=== PATIENT | female | born 1980 | race Asian ===

== ENCOUNTER → 2023-10-08 12:24 | Outpatient (REF) | payer OTHER, SELFPAY | LOC: RAD 12:24 | PROVIDERS: ATTENDING PHYSICIAN Nurse Practitioner Family | DX: M79.89 Other specified soft tissue disorders (principal) | CPT/HCPCS: 93971 ==

== ENCOUNTER → 2023-10-24 13:14 | Outpatient (REF) | payer OTHER, SELFPAY | LOC: RAD 13:14 | PROVIDERS: ATTENDING PHYSICIAN Nurse Practitioner Family | DX: M79.672 Pain in left foot (principal); M25.472 Effusion, left ankle | CPT/HCPCS: 73610; 73630 ==

== ENCOUNTER 2024-05-18 09:56 | Emergency (ER) | payer OTHER, SELFPAY ==
[2024-05-18 10:13] VITALS: BP 124/86
--- NOTE | 2024-05-18 10:17 | ED.GENMED ---
ED Provider Triage
<Holley Howard INTERNAL GRINDER SET UP OPERATOR - Last Filed: 05/18/24 10:22>
-
Patient seen by provider in Triage?: Seen in Triage
Attestation: A medical screening examination has been initiated by a qualified medical provider. Based on the assessment performed at this time, it has been determined that an emergent medical condition may exist and the patient has been informed
that further medical evaluation and possible additional diagnostic testing may be needed.
HPI: 43-year-old female with no past medical history states she has had palpitations since last night and her Apple watch read that it was A-fib. She has had palpitations the past but these are longer than usual. She has some nonradiating mid
chest 'discomfort,' worse with bending forward. Also has left lower jaw pain which started within the past several minutes, feels like tooth pain. Did feel lightheaded while in waiting room. Also has mild headache which just started within the
past several minutes
She states she does tend to get palpitations around her period, she did have some spotting 3 days ago. She is starting to have irregular periods.
GENERAL: Alert , in no apparent distress
EYE: No visual abnormalities.
ENT: No visible abnormalities.
LUNGS: No acute respiratory distress
NEUROLOGICAL: Alert and oriented
SKIN: Skin intact. No visible changes.
MUSCULOSKELETAL: Moving extremities normally
PSYCH: Normal and appropriate interaction.
This is a medical evaluation conducted in person to initiate diagnostic evaluation and provide initial therapeutics. Please see further documentation by the treating clinician.
History of Present Illness
<Holley Howard, INTERNAL GRINDER SET UP OPERATOR - Last Filed: 05/18/24 10:22>
General
Chief Complaint: Heart Rate Problem
Time Seen by Provider: 05/18/24 11:07
<Otilio Yusuf DO - Last Filed: 05/18/24 12:33>
History of Present Illness
History of Present Illness:
TIME OF INITIAL ENCOUNTER: 11 AM
HPI: The patient presents with recurrent palpitations. She has had several episodes like this in the past. She was seen by a cellophaner in [place] who told her to bear down if she ever had these episodes. This is the first time she had ongoing
symptoms. Upon arrival, she is found to have SVT with rates in the low 200s. She states that she did have some Sudafed last night but did not develop palpitations till this morning.
EXAM:
GENERAL: Well appearing in no distress
HEENT: Moist oral mucosa
CARDIOVASCULAR: No murmurs, tachycardic heart rate, regular rhythm, No chest wall tenderness
PULMONARY: No respiratory distress, breath sounds are clear and equal
ABDOMEN: Soft with no peritoneal signs, no tenderness
NEUROLOGIC: Excellent strength all extremities, no coordination deficits
PSYCHIATRIC: Appropriate mental status, normal insight and judgement, but appears slightly anxious
EXTREMITIES: Nontender, no edema, moves all extremities equally
SKIN: No rash, no lesions
NUMBER AND COMPLEXITY OF PROBLEMS ADDRESSED AT THE ENCOUNTER
� Chronic conditions affecting care: No significant past medical history but has had paroxysmal palpitations in the past
� Acute Exacerbation and/or Progression of Chronic Illness: This is an acute problem
� Differential Diagnosis includes: SVT, medication induced, atrial dysrhythmia, electrolyte abnormality, thyroid disease
AMOUNT AND/OR COMPLEXITY OF DATA TO BE REVIEWED AND ANALYZED
� I performed an independent evaluation of and my interpretation is:
EKG: Initial EKG shows a sinus rhythm with rate of 109, at 11:05 AM, EKG shows SVT with ventricular rate of 210
CT:
X-rays:
Laboratory Studies: Chemistries unremarkable, hCG, troponin, TSH normal, CBC normal
Other:
� Review of other/old records: No old records available for review
� Clinical information was obtained by an independent historian: Spoke to at bedside
� Prescriptions/Medications Considered but not given:
� Further testing considered but not performed:
RISK OF COMPLICATIONS AND/OR MORBIDITY OR MORTALITY OF PATIENT MANAGEMENT
� Social determinants of health affecting care: Lives at home
� Discussion with other providers: Discussed case with Dr. Khadijah Guthrie� she agrees with beta-maday and has arrange close outpatient follow-up for 8 AM this
� Escalation of care including admission/observation vs risk of discharge considered: Upon arrival, patient's heart rate was around 200 however with vagal maneuvers she went back down to about 100 but lasted only temporarily.
She was given IV and oral beta-maday and then was also given adenosine.
ANY OTHER UPDATES:
12:20 PM: Heart rate prior rarely around 100. Overall feels improved. Some vague chest discomfort has been occurring however it is clearly reproducible with palpation on examination. Suggest that she try Motrin (declined Toradol here).
Phy Exam
<Otilio Yusuf, DO - Last Filed: 05/18/24 12:33>
Physical Exam
Physical Exam:
See HPI
Course
<Holley Howard, INTERNAL GRINDER SET UP OPERATOR - Last Filed: 05/18/24 10:22>
Orders/Labs/Results
Orders:
Orders
05/18/24 10:09
EKG [Electrocardiogram (*1)] Urgent
Reason for Study: Chest Pain
EKG- Treatment ONCE
05/18/24 10:21
Test Result ONCE
CR Chest - 2 Views Urgent
Comment:
Reason For Exam: palpitations, cp
05/18/24 10:32
Complete Blood Count/With Diff Urgent
Comprehensive Metabolic Panel Urgent
HCG, Serum Qualitative Screen Urgent
TSH Urgent
Troponin I Urgent
05/18/24 11:03
Electrocardiogram (*1) Urgent
Reason for Study: Tachycardia
EKG- Treatment ONCE
05/18/24 11:06
Adenosine [Adenocard] 18 mg .ROUTE .STK-MED ONE
Diltiazem HCl [Cardizem] 25 mg .ROUTE .STK-MED ONE
05/18/24 11:10
0.9% Sodium Chloride 1000 ml [Nss] 1,000 ml IV BOLUS
Metoprolol [Lopressor] 5 mg .ROUTE .STK-MED ONE
05/18/24 11:11
Metoprolol [Lopressor] 5 mg IV NOW STA
05/18/24 11:15
Adenosine [Adenocard] 6 mg IV NOW STA
05/18/24 11:20
Metoprolol Xl [Toprol Xl] 25 mg PO NOW STA
Abnormal Lab Results
05/18/24
10:32
Hgb 16.1 H g/dL
(12.0-16.0)
MCH 32.4 H pg
(27.0-31.0)
Chloride 108 H mmol/L
(98-107)
Carbon Dioxide 21 L mmol/L
(22-30)
BUN 6 L mg/dl
(7-17)
Creatinine 0.5 L mg/dL
(0.6-1.0)
Glucose 116 H mg/dl
(70-99)
05/18/24 10:32
05/18/24 10:32
Vital Signs
Initial and Last Documented VS:
Initial Vital Signs
Temp Pulse Resp BP Pulse Ox
36.8 C 117 18 124/86 100
05/18/24 10:13 05/18/24 10:13 05/18/24 10:13 05/18/24 10:13 05/18/24 10:13
Last Documented Vital Signs
Temp Pulse Resp BP Pulse Ox
36.8 C 105 32 101/56 100
05/18/24 10:13 05/18/24 11:30 05/18/24 11:30 05/18/24 11:30 05/18/24 11:30
<Otilio Yusuf, DO - Last Filed: 05/18/24 12:33>
Orders/Labs/Results
Orders:
Orders
05/18/24 10:09
EKG [Electrocardiogram (*1)] Urgent
Reason for Study: Chest Pain
EKG- Treatment ONCE
05/18/24 10:21
Test Result ONCE
CR Chest - 2 Views Urgent
Comment:
Reason For Exam: palpitations, cp
05/18/24 10:32
Complete Blood Count/With Diff Urgent
Comprehensive Metabolic Panel Urgent
HCG, Serum Qualitative Screen Urgent
TSH Urgent
Troponin I Urgent
05/18/24 11:03
Electrocardiogram (*1) Urgent
Reason for Study: Tachycardia
EKG- Treatment ONCE
05/18/24 11:06
Adenosine [Adenocard] 18 mg .ROUTE .STK-MED ONE
Diltiazem HCl [Cardizem] 25 mg .ROUTE .STK-MED ONE
05/18/24 11:10
0.9% Sodium Chloride 1000 ml [Nss] 1,000 ml IV BOLUS
Metoprolol [Lopressor] 5 mg .ROUTE .STK-MED ONE
05/18/24 11:11
Metoprolol [Lopressor] 5 mg IV NOW STA
05/18/24 11:15
Adenosine [Adenocard] 6 mg IV NOW STA
05/18/24 11:20
Metoprolol Xl [Toprol Xl] 25 mg PO NOW STA
Abnormal Lab Results
05/18/24
10:32
Hgb 16.1 H g/dL
(12.0-16.0)
MCH 32.4 H pg
(27.0-31.0)
Chloride 108 H mmol/L
(98-107)
Carbon Dioxide 21 L mmol/L
(22-30)
BUN 6 L mg/dl
(7-17)
Creatinine 0.5 L mg/dL
(0.6-1.0)
Glucose 116 H mg/dl
(70-99)
05/18/24 10:32
05/18/24 10:32
Vital Signs
Initial and Last Documented VS:
Initial Vital Signs
Temp Pulse Resp BP Pulse Ox
36.8 C 117 18 124/86 100
05/18/24 10:13 05/18/24 10:13 05/18/24 10:13 05/18/24 10:13 05/18/24 10:13
Last Documented Vital Signs
Temp Pulse Resp BP Pulse Ox
36.8 C 105 32 101/56 100
05/18/24 10:13 05/18/24 11:30 05/18/24 11:30 05/18/24 11:30 05/18/24 11:30
<Otilio Yusuf DO - Last Filed: 05/18/24 12:33>
*Critical Care Note
Total Time (30-74mins, 75-104mins- exclusive of procedures): 40 minutes
comment:
The patient's heart rate was above 200 on several occasions. This recurred despite vagal maneuvers. We also gave beta-maday both IV and orally. We have also given adenosine. Her vital signs were very closely monitored. Overall she has
improved after medications were given. I also emergently discussed case with cardiology.
ED Attending Note
<Holley Howard INTERNAL GRINDER SET UP OPERATOR - Last Filed: 05/18/24 10:22>
-
Portions of this chart may have been created with voice recognition software.� Occasional wrong word or��sound alike� substitutions may have occurred due to the inherent limitations of voice recognition software.
Discharge Plan
Departure
Patient Disposition: Home (Routine Discharge)
Date of Disposition: 05/18/24
Time of Disposition: 12:22
Patient with high blood pressure during this ER visit?: Yes
Discharge Problem:
Supraventricular tachycardia
Instructions: Supraventricular tachycardia (SVT)
Prescriptions:
New
metoprolol succinate [Toprol XL] 25 mg tablet extended release 24 hr
25 mg PO DAILY Qty: 30 0RF
Referrals:
Richard Umanzor MD [Family Provider] -
Rah Guthrie MD [Active] - Follow up in 2-3 days
Activity Restrictions/Additional Instructions:
I notified one of the cardiologists here. She would like you to follow-up with Dr[facility] at 8 AM on . She agrees with placing you on the beta-maday as an outpatient. Return here if worse or other concerns.
Today, we gave you a quick acting IV metoprolol, long-acting oral metoprolol, and a dose of adenosine. You did respond to vagal maneuvers initially.
Interventions
Interventions:
*Risk Screen - Suicide Last Done: 05/18/24 10:13
*General Assessment Last Done: 05/18/24 10:13
*Neglect/Abuse Screening Last Done: 05/18/24 10:13
*ED COVID-19 Vaccine History Last Done: 05/18/24 11:09
ED- Cardiac Assessment Last Done: 05/18/24 11:09
ED- Pulmonary Assessment Last Done: 05/18/24 11:09
Discharge Date and Time
Print Language: TURKMEN
[2024-05-18 10:47] LABS: % Basophils 0.6 % (0-2); % Eosinophils 1.9 % (0-6); % Immature Granulocytes 0.4 % (0-0.5); % Lymphocytes 33.1 % (20.5-51.1); % Monocytes 7.8 % (1.7-9.3); % Neutrophils 56.2 % (42.2-75.2); Absolute Eosinophils 0.1 10^3/uL (0-0.7); Absolute Lymphocytes 1.6 10^3/uL (1.2-3.4); Absolute Monocytes 0.4 10^3/uL (0.1-0.6); Absolute Neutrophils 2.7 10^3/uL (1.4-6.5); Hematocrit 46.7 % (37.0-47.0); Hemoglobin 16.1 g/dL (12.0-16.0); Mean Corp Hgb Conc. 34.5 g/dL (33.0-37.0); Mean Corpuscular Hgb 32.4 pg (27.0-31.0); Mean Platelet Volume 10.2 fL (7.4-10.4); Nucleated Red Blood Cells % 0 %; Platelet Count 259 10^3/uL (130-400); Red Blood Cell Count 4.97 10^6/uL (4.20-5.40); Red Cell Dist. Width 11.6 % (11.5-14.5); White Blood Cell Count 4.9 10^3/uL (4.8-10.8)
[2024-05-18 10:57] LABS: HCG, Serum Qualitative Screen Negative
[2024-05-18 11:02] LABS: ALT (SGPT) 26 U/L (0-35); AST (SGOT) 26 U/L (14-36); Albumin 4.9 g/dl (3.5-5.0); Alkaline Phosphatase 56 U/L (38-126); Blood Urea Nitrogen 6 mg/dl (7-17); Calcium 9.6 mg/dl (8.4-10.2); Carbon Dioxide 21 mmol/L (22-30); Chloride 108 mmol/L (98-107); Glucose 116 mg/dl (70-99); Potassium 4.3 mmol/L (3.5-5.1); Sodium 143 mmol/L (135-145); Total Bilirubin 0.3 mg/dl (0.2-1.3); Total Protein 7.5 g/dl (6.3-8.2); eGFR > 60.00
[2024-05-18 11:06] LABS: Troponin I < 0.012 ng/ml
[2024-05-18 11:07] VITALS: BP 158/139
[2024-05-18] MEDS: NSS 1000 IV (11:12)
[2024-05-18] MEDS: LOPRESSOR 5 MG IV (11:12)
[2024-05-18 11:17] VITALS: BP 109/71
[2024-05-18] MEDS: ADENOCARD 6 MG IV (11:18)
[2024-05-18] MEDS: TOPROL XL 25 MG PO (11:24)
[2024-05-18 11:28] LABS: TSH 0.73 uIU/ml (0.47-4.68)
[2024-05-18 11:30] VITALS: BP 101/56
== END 2024-05-18 12:44 | disposition home or self-care (01) ==
LOC: EMR 09:56
PROVIDERS: Registered Nurse; EMERGENCY PHYSICIAN Emergency Medicine; FAMILY PHYSICIAN Family Medicine
DX: I47.10 Supraventricular tachycardia, unspecified (principal); R03.0 Elevated blood-pressure reading, without diagnosis of hypertension
CPT/HCPCS: 99291; 96374; 96375; 96361; 80053; 84443; 84484; 84703; 85025; 93005; J0153

== ENCOUNTER 2025-03-24 12:01 | Emergency (ER) | payer OTHER, SELFPAY ==
[2025-03-24 12:04] VITALS: BP 157/107
--- NOTE | 2025-03-24 13:10 | ED.GENMED ---
History of Present Illness
General
Chief Complaint: Eye Problems
Time Seen by Provider: 03/24/25 13:09
History of Present Illness
History of Present Illness:
FOCUSED PAST MEDICAL HISTORY
- Has had AVNRT
REVIEW OF OLD RECORDS
- The patient was seen with SVT in May 2024 by me and converted with adenosine
Note:
CHIEF COMPLAINT(S)
Left eye trauma.
HISTORY OF PRESENT ILLNESS
The patient is a 44-year-old female who presented with trauma to the left eye after an injury involving a pointed metal object. The incident occurred when the patient was dropping something, and the metal object, initially placed outside, had been
moved inside. The object caused an abrasion characterized by soreness and stinging, though the patient did not report any sensation of a foreign body within the eye. The trauma appears to have resulted in a cut, and upon wiping with tissue after
rinsing with warm water, the patient noticed blood. A physical examination revealed focal conjunctival hemorrhage in the lateral aspect of the sclera of the left eye.
PHYSICAL EXAM
General: Alert, no acute distress.
Eye, Ears, Nose, Mouth, and Throat: The left eye shows significant focal subconjunctival injection at the lateral aspect of the left eye. No evidence of corneal involvement is observed, as confirmed by the lack of a hyphaema (i.e., no fluid or blood
collection in the anterior chamber) there is no fluorescein uptake over the cornea there is an increased amount of tearing to the left eye
PROBLEM LIST
Acute:
- Left eye subconjunctival hemorrhage
PLAN
- Perform staining of the eye to assess for any corneal abrasions.
- Monitor for any signs of worsening or additional symptoms.
DIFFERENTIAL DIAGNOSIS
The Differential Diagnosis includes, in no particular order and is not limited to:
- Conjunctival laceration
- Corneal abrasion
- Subconjunctival hemorrhage
- Foreign body in the eye
- Corneal ulcer
- Blunt trauma injury to the eye
- Hyphema
- Scleral laceration
- Orbital fracture
- Endophthalmitis (if infection develops)
Disposition:
SUMMARY OF ENCOUNTER
The patient, a 44-year-old female, presented to the emergency department with trauma to the left eye caused by a pointed metal object, resulting in soreness, stinging, and a subconjunctival hemorrhage. Numbing eye drops were initially administered,
which significantly alleviated the pain. Given the traumatic nature of the injury to the sclera, antibiotic eye drops were decided upon as a precaution to prevent infection. Additionally, the patient was advised to monitor for signs of infection
such as pus and increased redness.
PLAN
Prescribe antibiotic eye drops to prevent infection. Provide contact information for Dr. Gupta for follow-up care.
PATIENT EDUCATION AND COUNSELING
The patient was informed about the purpose of the antibiotic eye drops and the importance of monitoring for any signs of infection, including pus and increased redness. The patient was counseled on the expected duration of subconjunctival hemorrhage
resolution, which usually lasts about two weeks.
FOLLOW-UP INSTRUCTIONS
The patient should contact Dr. Acosta for follow-up care and reach out immediately if signs of infection occur.
MEDICATION RECONCILIATION
Antibiotic eye drops were prescribed to prevent infection following the eye trauma.
MEDICAL DECISION MAKING
- Complexity of Data Reviewed:
DDx includes conjunctival laceration, corneal abrasion, subconjunctival hemorrhage, foreign body in the eye, corneal ulcer, blunt trauma injury to the eye, hyphema, scleral laceration, orbital fracture, endophthalmitis if infection develops.
- Risk:
Prescription medication (antibiotic eye drops) was prescribed to reduce the risk of infection.
DIAGNOSIS
Traumatic subconjunctival hemorrhage - ICD-10 code S05.11XA left eye -
I sent message to Dr. Gupta, on-call for ophthalmology but there was no immediate return message
Will give ofloxacin drops to help prevent infection
Phy Exam
Physical Exam
Physical Exam:
See HPI
Course
Orders/Labs/Results
Orders:
Orders
03/24/25 13:44
Ofloxacin [Ocuflox] 1 drop .ROUTE .STK-MED ONE
03/24/25 18:00
Ofloxacin [Ocuflox] See Dose Instructions OPHTH QID
Vital Signs
Initial and Last Documented VS:
Initial Vital Signs
Temp Pulse Resp BP Pulse Ox
36.8 C 109 20 157/107 97
03/24/25 12:04 03/24/25 12:04 03/24/25 12:04 03/24/25 12:04 03/24/25 12:04
Last Documented Vital Signs
Temp Pulse Resp BP Pulse Ox
36.8 C 109 20 157/107 97
03/24/25 12:04 03/24/25 12:04 03/24/25 12:04 03/24/25 12:04 03/24/25 13:11
*Pulse Oximetry
SaO2: 97
Patient hypoxic: no
*Critical Care Note
Total Time (30-74mins, 75-104mins- exclusive of procedures): Not Applicable
ED Attending Note
-
Portions of this chart may have been created with voice recognition software.� Occasional wrong word or��sound alike� substitutions may have occurred due to the inherent limitations of voice recognition software.
Discharge Plan
Departure
Patient Disposition: Home (Routine Discharge)
Date of Disposition: 03/24/25
Time of Disposition: 13:44
Patient with high blood pressure during this ER visit?: Yes
Discharge Problem:
Traumatic subconjunctival hemorrhage of left eye
Instructions: Subconjunctival Hemorrhage, BLOOD PRESSURE
Prescriptions:
No Action
metoprolol succinate [Toprol XL] 25 mg tablet extended release 24 hr
25 mg PO DAILY Qty: 30 0RF
Referrals:
Richard Umanzor MD [Family Provider, Family Practice]
Earnest Gupta MD [Active, Ophthalmology]
Activity Restrictions/Additional Instructions:
You can use 2 drops to the left eye 3 times a day to help prevent infection. I did not hear back from the on-call ampoule filler and sealer but you can call their office for follow-up.
Interventions
Interventions:
*General Assessment Last Done: 03/24/25 12:04
Discharge Date and Time
Print Language: PRYDEINIG
[2025-03-24] MEDS: OCUFLOX 2 DROP OPHTH (13:52)
== END 2025-03-24 14:00 | disposition home or self-care (01) ==
LOC: EMR 12:01
PROVIDERS: EMERGENCY PHYSICIAN Emergency Medicine; FAMILY PHYSICIAN Family Medicine
DX: H11.32 Conjunctival hemorrhage, left eye (principal); S05.92XA Unspecified injury of left eye and orbit, initial encounter; W22.8XXA Striking against or struck by other objects, initial encounter
CPT/HCPCS: 99283